=== PATIENT | male | born 1940 | race Caucasian/White ===

== ENCOUNTER → 2024-10-28 12:34 | Outpatient (REF) | payer MEDICARE, SELFPAY | LOC: CLAB 12:34 | PROVIDERS: ATTENDING PHYSICIAN Surgery | DX: N39.0 Urinary tract infection, site not specified (principal) | CPT/HCPCS: 87077; 87086; 87147 ==

== ENCOUNTER → 2025-04-05 20:23 | Outpatient (REF) | payer MEDICARE, SELFPAY | LOC: PAVMRI 20:23 | PROVIDERS: ATTENDING PHYSICIAN Physical Medicine & Rehabilitation; FAMILY PHYSICIAN Registered Nurse | DX: M54.16 Radiculopathy, lumbar region (principal) | CPT/HCPCS: 72148 ==